=== PATIENT | male | born 1980 | race Caucasian/White ===

== ENCOUNTER 2016-10-08 12:04 | Day surgery (SDC) | payer OTHER ==
[~2016-10-08] VITALS: Ht 175.3 cm; Wt 61.2 kg
[~2016-10-08 12:04] MED LIST: /THIA10TA OR; FOLI1TAB OR; NICO21DI4 TD; Theragran PO; ZOLO50TA OR
[2016-10-08] MEDS ORDERED: ONDANSETRON 4MG/2ML VIAL (J2405) IV ONE (12:30)
[2016-10-08] MEDS ORDERED: MORPHINE 4 MG/ML 1ML SYRINGE IV ONE (12:30)
[2016-10-08] MEDS ORDERED: NS 1,000 ML IV ONE (12:30)
[2016-10-08] MEDS ORDERED: ceFAZolin SOD 1 GM in D5W MINI-BAG PLUS 50 ML IV ONE ×3 (12:45→16:00)
[2016-10-08] MEDS: HYDROmorphone HCL 1 MG/ML SYRINGE (J1170) IV PRN ×2 (12:57→13:30)
[2016-10-08] MEDS ORDERED: ceFAZolin 1GM INJ (J0690) As Ordered ONE (13:40)
[2016-10-08] MEDS ORDERED: MIDAZOLAM INJ 2 MG/2 ML VIAL (J2250) As Ordered ONE (13:42)
[2016-10-08] MEDS ORDERED: fentaNYL 100 MCG/2 ML INJECTION (J3010) As Ordered ONE (13:42)
--- NOTE | 2016-10-08 13:42 | REP ---
RIGHT ANKLE SERIES: Four views of the right ankle are performed. There is a metallic foreign body representing a metallic nail in the distal tibia. This extends posterior to the distal fibula. Osseous structures are well aligned. Ankle mortise is anatomic. I do not see a displaced fracture or dislocation. Signed by Chino Castañeda MD 10/08/2016 05:23 P
[2016-10-08] MEDS ORDERED: LIDOCAINE 2% INJ 100 MG/5 ML SDV (FOR ANES.) As Ordered ONE (13:44)
[2016-10-08] MEDS ORDERED: PROPOFOL 200 MG/20 ML VIAL As Ordered ONE (13:44)
[2016-10-08] MEDS ORDERED: dexameTHASONE 4 MG/ML 1ML VIAL (J1100) As Ordered ONE (13:44)
[2016-10-08] MEDS ORDERED: KETOROLAC 60 MG/2 ML VIAL (J1885) As Ordered ONE (13:45)
[2016-10-08] MEDS ORDERED: ONDANSETRON 4MG/2ML VIAL (J2405) As Ordered ONE (13:45)
[2016-10-08] MEDS ORDERED: KEFL500C17 PO (13:51)
[2016-10-08] MEDS ORDERED: PERC5TAB12 PO (14:00)
[2016-10-08] MEDS ORDERED: BUPIVACAINE HCL 0.5% 30 ML VIAL As Ordered ONE (14:10)
--- NOTE | 2016-10-08 15:14 | HPE ---
DATE OF ADMISSION: 10/08/2016 CHIEF COMPLAINT: Right distal tibia nail gun injury with open fracture. HISTORY: This is a 35-year-old gentleman who had a nail gun injury at work. 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 This penetrated through his clothing and actually pinned this closing down to the medial aspect of his ankle and the nail protruded entirely through the tibia, exiting out the lateral posterior side. He is up-to-date on his tetanus per his report and he was given IV antibiotics in the emergency room. He denies any other injury but he is in significant pain. I was asked to evaluate him for this injury. PHYSICAL EXAMINATION: On exam he is an otherwise healthy gentleman in no acute distress. HEENT extraocular muscles intact. Pharynx is benign. He has regular rate and rhythm to his pulse. He has nonlabored breathing. Benign abdomen. His right lower extremity he does relate some tingling and decreased sensation throughout the medial and dorsal aspect of his foot and ankle. He has some remaining sock that is at attached to the nail and the nail is so far imbedded that it actually on the x-ray imbeds into the cortex of the bone. So, I do not think that we will be other removed the fabric without taking him to the operating room. He again does have some swelling around this area, some swelling distal to it. He does report that he can feel me touch his toes but he is in significant pain. Does not appear to have an exit wound out laterally. The exam is a little bit limited due to take discomfort of the patient. He has a temperature of 98.6, pulse of 64, respirations 20, blood pressure 183/80, pulse oximetry 100. REVIEW OF SYSTEMS is negative for any cardiac, pulmonary, abdominal, GI, endocrine, musculoskeletal, etc. FAMILY HISTORY: Noncontributory. 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 Radiographs were reviewed and they demonstrate a headed nail that penetrates the medial aspect of his tibia and exits out the posterolateral aspect of the tibia. It looks like it is fairly centered in the bone. It is in the metaphyseal region and the head of the nail actually does penetrate the cortex of the bone so there is some degree of fracture there, at least involving the medial cortex. I do not see clear evidence of other fracture. There potentially is a slight lucency above the nail, but I believe this is artifact. IMPRESSION: Nail gun injury to the right distal tibia with technically an open fracture involving the medial cortex. RECOMMENDATIONS: I have suggested that we proceed to the operating room for surgical treatment of this. I think this is going to have to be removed under anesthesia. I think will need to irrigate out the wound, open it up and remove any foreign material, removed the nail, remove any bony debris. He understands the nature of this and the risks of bleeding, infection, damage to nerves, vessels, persistent pain, blood clots, retained foreign material, some risk of ongoing infection. I think that given the relative cleanliness of this injury that did not involve gross contamination of soil or any obvious infected material, I think it would be reasonable to treat him with IV antibiotics while he is in the hospital, preoperatively and postoperatively, and send him home on oral antibiotics when he is comfortable and keep him on crutches. I will likely put in a posterior splint for pain control and for stabilization of the tibia. The patient wished to proceed with this. I have contacted the operating room and they have sent for him already.
[2016-10-08] MEDS ORDERED: LR 1,000 ML IV SCH ×2 (15:15)
[2016-10-08] MEDS ORDERED: ONDANSETRON 4MG/2ML VIAL (J2405) IV PRN (15:15)
[2016-10-08] MEDS ORDERED: fentaNYL 100 MCG/2 ML INJECTION (J3010) IV PRN (15:15)
[2016-10-08] MEDS ORDERED: PERCOCET 5MG/325MG TAB PO PRN ×2 (15:15)
[2016-10-08] MEDS ORDERED: MORPHINE 10 MG/ML 1ML VIAL IV PRN (15:30)
[2016-10-08 16:40] VITALS: BP 110/59
--- NOTE | 2016-10-10 05:39 | RO ---
DATE OF PROCEDURE: 10/08/2016 PREOPERATIVE DIAGNOSIS: Right nail gun injury to distal tibia with open fracture and significant retained foreign materials in the form of clothing. POSTOPERATIVE DIAGNOSIS: Right nail gun injury to distal tibia with open fracture and significant retained foreign materials in the form of clothing. PROCEDURE: I and D open fracture distal tibia, removal of nail and foreign material and short leg splint placement for tibia fracture. SURGEON: Charles Boyle MD C PROGRAMMER: ANESTHESIA: Spinal. ESTIMATED BLOOD LOSS: Minimal. COMPLICATIONS: None. INDICATIONS: 35-year-old gentleman who sustained a nail gun injury to his right distal tibia today. On x-ray the head of the nail actually was imbedded in the cortex of the tibia and there was some fragmentation around the tibia. His sock was also embedded in the wound and was not able to be removed in emergency room. I recommended surgical treatment. He understood the nature of this, the risks of bleeding, infection, damage to nerves, vessels, persistent pain, persistent infection, persistent retained foreign material, possible need for further surgery. DESCRIPTION OF PROCEDURE: The patient was taken to the operating room and placed in supine position after spinal anesthesia was induced. The right lower extremity, initially I removed some of the sock material around the wound so we could get a good prep and drape. Time-out had been performed, and a longitudinal incision was made about 3 cm total, including proximal and distal to the nail entry wound. I then carefully dissected down through the subcutaneous tissue. The nail actually was impaled in the tibia posterior to the entrance wound in the skin. So I dissected back posteriorly to find this and I removed as much of the sock as I could. I then was able to find the nail and get a neves elevator underneath the head and gradually removed the nail and then remove it with pliers. Following this, I removed any remaining foreign material and sock material. There was also a little ring of perhaps adhesive material or paper that attached the nails together that was removed. I irrigated copiously with 3 liters of antibiotic pulsatile irrigation stopping periodically to further debride and make sure there was no remaining loose or foreign material. I also used a rongeur to remove bony fragments from around this. I also used the knife to remove the skin edges around the entrance wound to clean these up. Subcutaneous tissue was also removed in addition to the bone fragments around this entrance wound. I then further irrigated and also irrigated out the nail tunnel with a needle to flush this out as well. Final irrigation was performed. I then closed the skin proximal and distal to the entrance wound with #4-0 nylon suture, leaving the entrance wound open, but this was not exposed to bone. There was some soft tissue covering the bone below this. The entrance wound into the bone was completely covered by soft tissue and the opening I left was very small, just a matter of 3-4 mm to allow for any drainage. Xeroform gauze and sterile dressing was applied, followed by a short leg splint. He was taken to recovery room in stable condition. There were no known complications. The plan will be we will give him another dose of IV antibiotics here. I have ordered oral antibiotics, Keflex to be taken at home and pain medication. I did inject 10 mL of 0.5% Marcaine into the wound and soft tissue around the entrance to the bone to give him some postoperative pain control. We will keep him nonweightbearing with crutches for now and follow him up in the office in several days.
== END 2016-10-08 17:15 | disposition home or self-care (01) ==
LOC: M ED 12:04 → M SDC 13:30
PROVIDERS: ATTEND Orthopaedic Surgery
DX: S82.301B Unspecified fracture of lower end of right tibia, initial encounter for open fracture type I or II (principal); S91.021A Laceration with foreign body, right ankle, initial encounter; W29.4XXA Contact with nail gun, initial encounter; Y92.61 Building [any] under construction as the place of occurrence of the external cause; Y99.0 Civilian activity done for income or pay; Y93.89 Activity, other specified; Z18.10 Retained metal fragments, unspecified
CPT/HCPCS: 11010; 27824; 73610; 88300; 96374; 96375; 96376; 99285; J0690; J1100; J1170; J1885; J2250; J2405; J3010

== ENCOUNTER 2025-01-18 01:01 | Emergency (ER) | payer OTHER ==
[~2025-01-18] VITALS: Ht 175.3 cm; Wt 63.9 kg
[~2025-01-18 01:01] MED LIST changes: +KEFL500C17 PO; +PERC5TAB12 PO
[2025-01-18] MEDS ORDERED: ISOVUE-370 76% 100 ML VIAL As Ordered ONE (05:02)
[2025-01-18] MEDS: cefTRIAXone SOD 2 GM in DEXTROSE 5% (D5W) ADV/MINI-BAG 50 ML IV ONE (05:07)
[2025-01-18] MEDS: KETOROLAC 30 MG/ML 1 ML VIAL IV ONE (05:07)
[2025-01-18 05:12] LABS: BASO # 0.1 10^3/uL (0.0-0.2); BASO % 0.7 % (0.0-1.0); EOS # 0.2 10^3/uL (0.0-0.5); EOS % 1.6 % (0.0-3.0); LYMPH # 2.5 10^3/uL (1.5-5.0); LYMPH % 19.5 % (24.0-44.0); MONO # 1.2 10^3/uL (0.0-0.8); MONO % 9.5 % (2.0-8.0); NEUTROPHILS # 8.6 10^3/uL (1.5-8.5); NEUTROPHILS % 68.4 % (36.0-66.0); PLATELET COUNT, AUTOMATED 490 10^3/uL (150-450)
[2025-01-18 05:47] LABS: ALT/SGPT 53 U/L (7.0-40); AST/SGOT 43 U/L (<34); CALCIUM LEVEL 8.6 MG/DL (8.5-10.1); CARBON DIOXIDE LEVEL 27 MMOL/L (20-31); CHLORIDE LEVEL 107 MMOL/L (98-107); CREATININE FOR GFR 0.77 MG/DL (0.70-1.30); GLOMERULAR FILTRATION RATE > 90.0 (>60); POTASSIUM SERUM 4.4 MMOL/L (3.5-5.1); SODIUM LEVEL 141 MMOL/L (136-145)
[2025-01-18] MEDS ORDERED: AZIT-12 PO (06:42)
[2025-01-18] MEDS ORDERED: NAPR-837 PO (06:42)
[2025-01-18] MEDS ORDERED: AMOX500C PO (06:42)
[2025-01-18] MEDS: AZITHROMYCIN 250 MG TABLET PO ONE (07:19)
[2025-01-18 07:21] VITALS: BP 116/82; TEMP 98.1; O2SAT 97
== END 2025-01-18 07:33 | disposition home or self-care (01) ==
LOC: M ED 01:01
DX: J18.9 Pneumonia, unspecified organism (principal); F17.200 Nicotine dependence, unspecified, uncomplicated; Z79.2 Long term (current) use of antibiotics; Z79.899 Other long term (current) drug therapy; Z79.1 Long term (current) use of non-steroidal anti-inflammatories (NSAID)
CPT/HCPCS: 71045; 71275; 80047; 80048; 80076; 83605; 85025; 87040; 87486; 87581; 87633; 87798; 93005; 93041; 94760; 96374; 96375; 99285; J0696; J1885; Q9967